=== PATIENT | male | born 1940 | race Caucasian/White ===

== ENCOUNTER 2019-06-06 20:22 | Emergency (ER) | payer MEDICARE, OTHER ==
[2019-06-06] MEDS ORDERED: Levofloxacin/Dextrose 5%-Water 50 ML IV ONE (20:51)
--- NOTE | 2019-06-06 20:52 | EDM.PDOC ---
ED HPI GENERAL MEDICAL PROBLEM - General Chief Complaint: CPR in Progress Stated Complaint: EMS ARRIVAL CARDIAC ARREST Time Seen by Provider: 06/06/19 20:25 Source of Information: Reports: EMS - History of Present Illness INITIAL COMMENTS - FREE TEXT/NARRATIVE: The patient is an 78-year-old male being brought into the ER secondary to cardiopulmonary arrest. The patient cannot provide history as he is intubated and paralyzed. Per EMS they were initially called to his house for shortness of breath as there was questionable problem with his oxygen machine at home but then he refused help so they had to leave. They then got called back to the house. The first responders found the patient pulseless and put on an AED and the patient was shocked one time. It is unknown what rhythm the patient was in. The patient was then hypotensive but had a pulse, and the first responders intubated the patient. They state they gave him 60 mg of rocuronium and could see the cords but had trouble passing the endotracheal tube but after approximately 15 seconds were able to pass the tube. The patient was then brought here. ED ROS GENERAL - Review of Systems Review Of Systems: Unable To Obtain Reason Not Obtained: Unable to obtain because the patient is intubated and paralyzed ED EXAM, GENERAL - Physical Exam Exam: See Below Free Text/Narrative:: Constitutional: Paralyzed, intubated patient who looks chronically ill, currently being bagged endotracheal tube in place. HEENT: Normocephalic, Atraumatic, facial trauma, pupils are equal Neck: Normal range of motion, No stridor, trachea midline Respiratory: Good bilateral breath sounds with bagging, no wheezes, no rales, no rhonchi Cardiovascular: Regular rate and rhythm, good peripheral pulses Gastrointestinal: Abdomen is soft and not distended Genital / Urinary: Deferred Musculoskeletal: All four extremities present and atraumatic, there is a right tibial intraosseous IV, there are multiple chronic surgical scars from peripheral vascular disease Back: Manic Integument: Warm, Dry, Color is ethnicity appropriate, No rash. Neuro: GCS 3, patient paralyzed Psych: unable to assess Course - Vital Signs Text/Narrative:: Based on the history I am assuming that the patient had a V. fib/V. tach arrest so the patient will be given 150 mg IV bolus of amiodarone over 10 minutes followed by 1 mg/min per IV. Peripheral IV access was established to supplement the right tibial intraosseous IV that is already present. Bedside portable chest x-ray was performed and reviewed by me at bedside -there is no pneumothorax, no pleural effusions, the endotracheal tube is present just above the clay, the left lungs are clear, the right lung has diffuse miliary appearing infiltrates -unclear if this is chronic versus an acute infection Stat portable ECG was reviewed and interpreted by me -ECG The ECG was read and interpreted by me. There are p waves before every QRS with a ventricular rate of 50. The OR, QRS, and QT intervals are all normal. Novice is normal. ST segments are baseline and the T wave morphology is normal. Final interpretation is a normal Sinus rhythm and a normal ECG. The patient was also given a bolus of Levaquin 750 mg IV. The patient initially had a strong pulse but he became slightly more hypotensive so a normal saline bolus was provided. I contacted Dr. Cox at [facility] and presented the case and accepts the patient in transfer. Flight has been called CRITICAL CARE TIME Critical care time on this patient was 35 minutes and this was due to the significant nature of the illness and the need for my prompt and continued intervention and oversight. It involved patient evaluations, imaging interpretations, medical management, and physician consultation. Critical care time is exclusive of billable procedures. - Orders/Labs/Meds Meds: Medications Discontinued Medications Generic Name Dose Route Start Last Admin Trade Name Freq PRN Reason Stop Dose Admin Amiodarone HCl/Dextrose Confirm 06/06/19 20:35 Nexterone In Dextrose 360 Mg/200 Ml Administered 06/06/19 20:36 Dose 360 mg in 200 mls @ as directed .ROUTE .STK-MED ONE Departure - Departure Time of Disposition: 21:01 Disposition: DC/Tfer to [facility] 02 Reason for Transfer *Q: Other (Higher level of care) Condition: Critical Clinical Impression: Cardiopulmonary arrest with successful resuscitation Referrals: Jose G Clark MD [Primary Care Provider] -
[2019-06-06] MEDS ORDERED: Levofloxacin/Dextrose 5%-Water 150 ML IV ONE (20:53)
--- NOTE | 2019-06-06 21:18 | CR ---
Chest: Portable supine view of the chest was obtained. Comparison: No prior chest x-ray is available for comparison. Diffuse right-sided interstitial change is seen. Lesser left lower lobe interstitial change is seen. Tip of endotracheal tube lies slightly above the clay by about 1.5 cm. Endotracheal tube could be withdrawn by about 3-4 cm for more optimal positioning. Heart size and mediastinum are normal. Bony structures are grossly intact. Impression: 1. Diffuse interstitial change within the right lung and lesser and left base. Without old chest x-rays, uncertain if this is acute or chronic. More likely things within the differential includes diffuse right-sided interstitial pneumonia with viral and bacterial etiologies, asymmetric pulmonary vascular congestion and asymmetric pulmonary fibrosis. 2. Tip of endotracheal tube slightly above the clay and for optimal positioning could be withdrawn by about 3-4 cm. 3. No additional abnormality is seen on portable chest x-ray. Diagnostic code #5 Study was dictated in [place] Standard Time
[2019-06-06] MEDS ORDERED: Midazolam 1 MG/ML 2 ML SDV IVPUSH ONE (21:24)
[2019-06-06] MEDS ORDERED: Levofloxacin/Dextrose 5%-Water 750 MG in Premix Bag 1 BAG IV ONE (21:27)
[2019-06-06] MEDS ORDERED: Sodium Chloride 0.9% 1,000 ML IV SCH (21:30)
[2019-06-06 21:40] LABS: BLOOD UREA NITROGEN,BUN 22 mg/dL (7.0-18.0); CARBON DIOXIDE,CO2 22.3 mmol/L (21.0-32.0); CHLORIDE,CL 86 mmol/L (98-107); POTASSIUM,K 3.3 mmol/L (3.5-5.1); SODIUM,NA 127 mmol/L (136-148)
[2019-06-06 21:41] LABS: GLUCOSE RANDOM 721 mg/dL (74-106)
== END 2019-06-06 21:10 ==
LOC: MW.ED 20:22
DX: I46.9 Cardiac arrest, cause unspecified (principal)
CPT/HCPCS: 36415; 43752; 51702; 71045; 71045-26; 80053; 81001; 83605; 84484; 85025; 85379; 85610; 93005; 96374; 96375; 99291